=== PATIENT | female | born 1955 | race Caucasian/White ===

== ENCOUNTER 2021-12-20 09:05 | Outpatient (RCR) | payer MEDICARE, BC, SELFPAY ==
--- OUTSIDE RECORDS SUMMARY | 2021-12-02 09:46 | XMS_ITS | Continuity of Care Document ---
:1955 Author Allergies, Adverse Reactions, Alerts Allergen Type Severity Reaction Last Verified Status Updated Cephalexin Allergy Mild rash September 28, Yes Active 2020 Social History Smoking Status Unknown if ever smoked Additional Data Assigned Sex Female Medications Medication Status Dose Units Route Directions Qty Days Start End Ins tructions Date Date Levothyroxine Active 137 MCG PO Daily 30 Sodium Insurance Providers Guarantor Aj HickmanadwellDouglas Address [address] [place] [id number] Contact Info. Home Phone: Payer Policy Id Coverage Id Subscriber's Subscriber Id Effective E xpiration Name Date Date Medicare [id number] [employer] [id number] Aj [id number] Cherelle B Douglas
--- NOTE | 2021-12-15 16:44 | ONC.NURNOTE ---
Authorization: User: Zhanna Hidalgo Walter Date: 10/13/21 14:38 Type: Eligibility Determination Note... Request received from [facility] for continued authorization of Remicade [id number]. Patient carries Medicare as primary insurance. Per CMS.gov LCD [id number] no prior authorization is required for Remicade. Services are based on medical necessity and follows Medicare guidelines.
[2021-12-20 09:53] VITALS: BP 99/68; PULSE 66; RESP 18; TEMP 37.1; O2SAT 99
[2021-12-20 09:56] LABS: Hematocrit 38.7 % (33.0-51.0); Hemoglobin* 12.7 gm/dL (12.0-16.0); Mean Corpuscular HGB Conc 33 gm/dL (32-36); Mean Corpuscular Hemoglobin 32 pg (26-34); Mean Corpuscular Volume 99 fL (80-100); Red Blood Count 3.93 m/uL (4.00-5.20); White Blood Count* 4.45 K/uL (4.50-11.00)
[2021-12-20 09:57] LABS: Basophils Percent Auto 0.7 % (0.0-3.0); Eosinophils Percent Auto 3.6 % (0.0-7.0); Monocytes Percent Auto 12.1 % (0.0-11.0); Neutrophils Percent Auto 54.6 % (42.0-72.0); Platelet Count* 172 K/uL (140-440); RDW Coefficient of Variation % 11.6 % (11.5-15.5)
[2021-12-20 09:59] LABS: Slide Review Reflex No
[2021-12-20] MEDS: 0.9 % SODIUM CHLORIDE 250 ml 250 ML 35 ML IV (10:00)
[2021-12-20 10:15] LABS: Albumin* 4.1 g/dL (3.3-5.0)
[2021-12-20 10:17] LABS: Total Protein* 7.1 g/dL (6.0-8.3)
[2021-12-20 10:18] LABS: Alanine Aminotransferase* 21 U/L (4-35); Alkaline Phosphatase* 88 U/L (40-150); Aspartate Amino Transferase* 32 U/L (12-35); Bilirubin Direct* 0.3 mg/dL (0.0-0.5); Bilirubin Total* 0.4 mg/dL (0.1-1.5)
[2021-12-20 10:20] VITALS: BP 115/73; PULSE 64; RESP 18; TEMP 36.8; O2SAT 100
[2021-12-20 10:50] VITALS: BP 114/68; PULSE 71; RESP 18; TEMP 36.8; O2SAT 97
[2021-12-20 11:20] VITALS: BP 108/69; PULSE 65; RESP 18; TEMP 36.9; O2SAT 98
== END 2022-01-08 23:59 | disposition home or self-care (01) ==
LOC: CCIC 09:05
PROVIDERS: PCP Family Medicine; Visit Provider Clinical Nurse Specialist
DX: K50.10 Crohn's disease of large intestine without complications (principal)
CPT/HCPCS: 36415; 80076; 85025; 96413; 96415; J7050

== ENCOUNTER 2022-07-26 08:30 | Outpatient (RCR) | payer MEDICARE, BC, SELFPAY ==
[2022-02-15 09:29] VITALS: BP 100/62; PULSE 73; RESP 16; TEMP 36.4; O2SAT 98
[2022-02-15] MEDS: 0.9 % SODIUM CHLORIDE 250 ml 250 ML 35 ML IV (09:40)
[2022-02-15] MEDS: SODIUM CHLORIDE 0.9 % (FLUSH) 10 ML SYRINGE IVF (09:52)
[2022-04-12 09:20] VITALS: BP 105/68; PULSE 69; RESP 16; TEMP 36.3; O2SAT 98
[2022-04-12 10:50] VITALS: BP 103/67; PULSE 99; RESP 16; TEMP 36.8; O2SAT 99
[2022-04-12 11:05] VITALS: BP 108/73; PULSE 72; RESP 14; TEMP 36.4; O2SAT 98
[2022-04-12 11:40] VITALS: BP 94/60; PULSE 72; RESP 14; TEMP 36.2
[2022-04-12] MEDS: SODIUM CHLORIDE 0.9 % (FLUSH) 10 ML SYRINGE IVF (12:15)
[2022-06-07 13:24] VITALS: BP 102/63; PULSE 76; RESP 16; TEMP 36.4; O2SAT 99
[2022-06-07] MEDS: 0.9 % SODIUM CHLORIDE 250 ml 250 ML 35 ML IV (13:26)
--- NOTE | 2022-07-20 13:04 | URNOTE ---
Request received for authorization for?Infliximab (J1745). Prior authorization is not required as services are based on medical necessity and follow Medicare guidelines.
[2022-07-26 08:43] VITALS: BP 124/71; PULSE 75; RESP 16; TEMP 36.3; O2SAT 97
[2022-07-26 09:02] LABS: Basophils Percent Auto 0.8 % (0.0-3.0); Eosinophils Percent Auto 2.4 % (0.0-7.0); Hematocrit 39.9 % (33.0-51.0); Hemoglobin* 13.8 gm/dL (12.0-16.0); Mean Corpuscular HGB Conc 35 gm/dL (32-36); Mean Corpuscular Hemoglobin 32 pg (26-34); Mean Corpuscular Volume 93 fL (80-100); Monocytes Percent Auto 11.5 % (0.0-11.0); Neutrophils Percent Auto 56.3 % (42.0-72.0); Platelet Count* 197 K/uL (140-440); RDW Coefficient of Variation % 11.5 % (11.5-15.5); Red Blood Count 4.28 m/uL (4.00-5.20); White Blood Count* 3.73 K/uL (4.50-11.00)
[2022-07-26 09:08] LABS: Slide Review Reflex No
[2022-07-26] MEDS: SODIUM CHLORIDE 0.9 % (FLUSH) 10 ML SYRINGE IVF (09:08)
[2022-07-26] MEDS: 0.9 % SODIUM CHLORIDE 250 ml 250 ML 35 ML IV (09:08)
[2022-07-26 09:32] LABS: Albumin* 4.3 g/dL (3.3-5.0)
[2022-07-26 09:35] LABS: Alanine Aminotransferase* 28 U/L (4-35); Alkaline Phosphatase* 62 U/L (40-150); Aspartate Amino Transferase* 37 U/L (12-35); Bilirubin Direct* 0.2 mg/dL (0.0-0.5); Bilirubin Total* 0.6 mg/dL (0.1-1.5); Total Protein* 7.6 g/dL (6.0-8.3)
--- NOTE | 2022-07-26 11:19 | ONC.NURNOTE ---
Labs and remicade documentation faxed to patients GI care clinicians. Next appointment set up. All questions answered.
== END 2022-08-14 23:59 | disposition home or self-care (01) ==
LOC: CCIC 08:30
PROVIDERS: PCP Family Medicine; Referring Provider Family Medicine; Visit Provider Clinical Nurse Specialist
DX: K50.10 Crohn's disease of large intestine without complications (principal)
CPT/HCPCS: 36415; 36592; 80076; 85025; 96413; 96415; J7050

== ENCOUNTER 2023-02-28 09:00 | Outpatient (RCR) | payer MEDICARE, BC, SELFPAY ==
[2022-09-20 09:16] VITALS: BP 111/71; PULSE 72; RESP 16; TEMP 36.1; O2SAT 100
[2022-09-20] MEDS: 0.9 % SODIUM CHLORIDE 250 ml 250 ML 35 ML IV (11:39)
[2022-11-15 09:45] VITALS: BP 115/68; PULSE 75; RESP 16; TEMP 36.6; O2SAT 98
[2022-11-15] MEDS: 0.9 % SODIUM CHLORIDE 250 ml 250 ML 35 ML IV (10:00)
--- NOTE | 2022-11-15 11:00 | PC.NURSE ---
Pt present at [facility] today for Remicade infusion. After beginning the infusion, RN noted lab orders for today (CBC/diff & LFT). Shared with patient and Josué shared that she also needed a Remicade level prior to starting infusion. Because infusion was already started, we were unable to do this lab. RN spoke with ordering provider office, [place], and was given ok to do labs with next infusion. They also faxed Remicade level orders for PRIOR to next infusion. Pt aware and agrees with the plan.
[2023-01-10 09:25] VITALS: BP 109/77; PULSE 71; RESP 16; TEMP 36.2; O2SAT 100
[2023-01-10 09:32] LABS: Basophils Percent Auto 1.1 % (0.0-3.0); Eosinophils Percent Auto 3.2 % (0.0-7.0); Hematocrit 40.3 % (33.0-51.0); Hemoglobin* 13.5 gm/dL (12.0-16.0); Lymphocytes Percent Auto 30.4 % (20-44); Mean Corpuscular HGB Conc 34 gm/dL (32-36); Mean Corpuscular Hemoglobin 32 pg (26-34); Mean Corpuscular Volume 97 fL (80-100); Monocytes Percent Auto 12.6 % (0.0-11.0); Neutrophils Percent Auto 52.7 % (42.0-72.0); Platelet Count* 193 K/uL (140-440); RDW Coefficient of Variation % 11.2 % (11.5-15.5); Red Blood Count 4.17 m/uL (4.00-5.20); White Blood Count* 3.72 K/uL (4.50-11.00)
[2023-01-10 09:44] LABS: Slide Review Reflex No
[2023-01-10 09:54] LABS: Albumin* 4.2 g/dL (3.3-5.0)
[2023-01-10 09:57] LABS: Alanine Aminotransferase* 28 U/L (4-35); Alkaline Phosphatase* 55 U/L (40-150); Aspartate Amino Transferase* 34 U/L (12-35); Bilirubin Total* 0.6 mg/dL (0.1-1.5); Total Protein* 7.8 g/dL (6.0-8.3)
[2023-01-11 21:26] LABS: Rheumatoid Factor <10 IU/mL (0-14)
--- NOTE | 2023-01-16 15:24 | ONC.NURNOTE ---
Faxed labs to [facility].
[2023-02-28 09:15] VITALS: BP 103/62; PULSE 77; RESP 16; TEMP 36.2; O2SAT 99
== END 2023-03-19 23:59 | disposition home or self-care (01) ==
LOC: CCIC 09:00
PROVIDERS: PCP Family Medicine; Referring Provider Family Medicine; Visit Provider Clinical Nurse Specialist
DX: K50.10 Crohn's disease of large intestine without complications (principal)
CPT/HCPCS: 36415; 80076; 80230; 85025; 86431; 96366; 96413; 96415; J7050

== ENCOUNTER 2023-10-04 09:00 | Outpatient (RCR) | payer MEDICARE, BC, SELFPAY ==
[2023-04-19 09:12] VITALS: BP 106/69; PULSE 72; RESP 17; TEMP 36.4; O2SAT 97
[2023-04-19] MEDS: SODIUM CHLORIDE 0.9 % (FLUSH) 10 ML SYRINGE IVF (15:08)
[2023-06-15 09:12] VITALS: BP 109/69; PULSE 67; RESP 16; TEMP 36.4; O2SAT 98
--- NOTE | 2023-06-29 11:48 | URNOTE ---
Request received for authorization for?Infliximab (J1745). Prior authorization is not required as services are based on medical necessity and follow Medicare guidelines.
[2023-08-09 09:09] VITALS: BP 108/67; PULSE 72; RESP 16; TEMP 35.8; O2SAT 98
[2023-08-09] MEDS: 0.9 % SODIUM CHLORIDE 250 ml 250 ML 35 ML IV (09:30)
[2023-08-09] MEDS: inFLIXimab (Remicade) 300 MG, TUBING PRIMARY 1 EACH, In-line 0.2 micron filter set 1 EA... 40 MG IV (09:51)
[2023-10-04 09:00] VITALS: BP 105/58; PULSE 76; RESP 16; TEMP 35.8; O2SAT 98
[2023-10-04] MEDS: inFLIXimab (Remicade) 300 MG, TUBING PRIMARY 1 EACH, In-line 0.2 micron filter set 1 EA... 40 MG IV (09:50)
[2023-10-04] MEDS: 0.9 % SODIUM CHLORIDE 250 ml 250 ML 35 ML IV (09:50)
[2023-10-04 09:59] LABS: Eosinophils Percent Auto 3.3 % (0.0-7.0); Hematocrit 38.7 % (33.0-51.0); Mean Corpuscular HGB Conc 34 gm/dL (32-36); Mean Corpuscular Hemoglobin 32 pg (26-34); Mean Corpuscular Volume 94 fL (80-100); Monocytes Percent Auto 13.8 % (0.0-11.0); Neutrophils Percent Auto 50.9 % (42.0-72.0); Platelet Count* 192 K/uL (140-440); RDW Coefficient of Variation % 11.4 % (11.5-15.5); Red Blood Count 4.12 m/uL (4.00-5.20)
[2023-10-04] MEDS: SODIUM CHLORIDE 0.9 % (FLUSH) 10 ML SYRINGE IVF (10:01)
[2023-10-04 10:13] LABS: Albumin* 4.2 g/dL (3.3-5.0)
[2023-10-04 10:16] LABS: Alanine Aminotransferase* 17 U/L (4-35); Alkaline Phosphatase* 65 U/L (40-150); Aspartate Amino Transferase* 33 U/L (12-35); Bilirubin Direct* 0.1 mg/dL (0.0-0.5); Bilirubin Total* 0.6 mg/dL (0.1-1.5); Total Protein* 7.8 g/dL (6.0-8.3)
--- NOTE | 2023-10-04 10:40 | ONC.NURNOTE ---
Patient here for her Remicade infusion. Appears that CBC and LFTs were not drawn in June when requested by ordering physician. Just the immunology was done in June. Fiscal Analyst ordered CBC and LFTs for today. These results along with the immunology lab results were faxed to Jessica LUIS at [facility]. Requested PA to send new orders if she wants to space labs out to get back on track. Patient also interested in the accelerated infusion. Faxed our order set to provider to fill out and fax back. Patient has an appointment at [facility] on 10/24/23 and will address this with provider. Her next infusion is scheduled for 11/28/23.
[2023-10-05 06:23] LABS: Slide Review Reflex No
== END 2023-10-16 23:59 | disposition home or self-care (01) ==
LOC: CCIC 09:00
PROVIDERS: PCP Family Medicine; Referring Provider Family Medicine; Visit Provider Clinical Nurse Specialist
DX: K50.10 Crohn's disease of large intestine without complications (principal); Z51.81 Encounter for therapeutic drug level monitoring
CPT/HCPCS: 36415; 80076; 80230; 85025; 96413; 96415; J7050

== ENCOUNTER 2024-05-15 09:00 | Outpatient (RCR) | payer MEDICARE, BC, SELFPAY ==
[2023-11-30] MEDS: 0.9 % SODIUM CHLORIDE 250 ml 250 ML 35 ML IV (11:18)
[2023-11-30] MEDS: inFLIXimab (Remicade) 300 MG, TUBING PRIMARY 1 EACH, In-line 0.2 micron filter set 1 EA... 100 MG IV (11:28)
[2024-01-23 09:15] VITALS: BP 110/68; PULSE 66; RESP 16; TEMP 36.5; O2SAT 99
[2024-01-23] MEDS: 0.9 % SODIUM CHLORIDE 250 ml 250 ML 30 ML IV (09:36)
[2024-01-23] MEDS: inFLIXimab (Remicade) 300 MG, TUBING PRIMARY 1 EACH, In-line 0.2 micron filter set 1 EA... 100 MG IV (09:45)
[2024-01-23] MEDS: SODIUM CHLORIDE 0.9 % (FLUSH) 10 ML SYRINGE IVF (09:47)
[2024-03-21 11:02] VITALS: BP 113/64; PULSE 72; RESP 17; TEMP 36.3; O2SAT 94
[2024-03-21 11:24] LABS: Basophils Percent Auto 1.5 % (0.0-3.0); Eosinophils Percent Auto 4.2 % (0.0-7.0); Hemoglobin* 12.9 gm/dL (12.0-16.0); Immature Granulocytes Pct Auto 0.3 %; Lymphocytes Percent Auto 31.4 % (20-44); Mean Corpuscular HGB Conc 32 gm/dL (32-36); Mean Corpuscular Hemoglobin 31 pg (26-34); Mean Corpuscular Volume 97 fL (80-100); Monocytes Percent Auto 15.1 % (0.0-11.0); Neutrophils Percent Auto 47.5 % (42.0-72.0); Platelet Count* 193 K/uL (140-440); RDW Coefficient of Variation % 11.8 % (11.5-15.5); Red Blood Count 4.11 m/uL (4.00-5.20); White Blood Count* 3.31 K/uL (4.50-11.00)
[2024-03-21 11:35] LABS: Slide Review Reflex No
[2024-03-21 11:39] LABS: Albumin* 4.3 g/dL (3.3-5.0)
[2024-03-21 11:41] LABS: Bilirubin Total* 0.6 mg/dL (0.1-1.5)
[2024-03-21 11:42] LABS: Alanine Aminotransferase* 50 U/L (4-35); Alkaline Phosphatase* 61 U/L (40-150); Aspartate Amino Transferase* 51 U/L (12-35); Total Protein* 7.6 g/dL (6.0-8.3)
[2024-03-21] MEDS: inFLIXimab (Remicade) 300 MG, TUBING PRIMARY 1 EACH, In-line 0.2 micron filter set 1 EA... 100 MG IV (11:59)
[2024-03-21] MEDS: SODIUM CHLORIDE 0.9 % (FLUSH) 10 ML SYRINGE IVF (12:00)
--- NOTE | 2024-03-21 14:38 | ONC.NURNOTE ---
Pt had 6 mo labs drawn. Elevated AST/ALT. Faxed and called to Jessica [facility], ordering provider. p:[phone] f: [phone]
[2024-05-15 09:09] VITALS: BP 116/68; PULSE 76; RESP 16; TEMP 35.7; O2SAT 99
[2024-05-15] MEDS: inFLIXimab (Remicade) 300 MG, TUBING PRIMARY 1 EACH, In-line 0.2 micron filter set 1 EA... 100 MG IV (09:35)
[2024-05-15] MEDS: SODIUM CHLORIDE 0.9 % (FLUSH) 10 ML SYRINGE IVF (09:38)
== END 2024-05-28 23:59 | disposition home or self-care (01) ==
LOC: CCIC 09:00
PROVIDERS: PCP Family Medicine; Referring Provider Family Medicine; Visit Provider Clinical Nurse Specialist
DX: K50.10 Crohn's disease of large intestine without complications (principal)
CPT/HCPCS: 36415; 80076; 85025; 96365; 96413; 96415; J1745; J7050

== ENCOUNTER 2024-09-02 09:36 | Outpatient (REF) | payer MEDICARE, BC, SELFPAY ==
[2024-09-02 09:50] LABS: Basophils Percent Auto 0.9 % (0.0-3.0); Eosinophils Percent Auto 5.1 % (0.0-7.0); Hematocrit 38.4 % (33.0-51.0); Hemoglobin* 12.7 gm/dL (12.0-16.0); Immature Granulocytes Pct Auto 0.3 %; Lymphocytes Percent Auto 26.8 % (20-44); Mean Corpuscular HGB Conc 33 gm/dL (32-36); Mean Corpuscular Hemoglobin 32 pg (26-34); Mean Corpuscular Volume 96 fL (80-100); Monocytes Percent Auto 15.4 % (0.0-11.0); Neutrophils Percent Auto 51.5 % (42.0-72.0); Platelet Count* 199 K/uL (140-440); RDW Coefficient of Variation % 11.3 % (11.5-15.5); Red Blood Count 4.02 m/uL (4.00-5.20); White Blood Count* 3.51 K/uL (4.50-11.00)
[2024-09-02 09:52] LABS: Slide Review Reflex No
[2024-09-02 10:00] LABS: Albumin* 4.1 g/dL (3.3-5.0)
[2024-09-02 10:02] LABS: Alanine Aminotransferase* 28 U/L (4-35); Aspartate Amino Transferase* 38 U/L (12-35)
[2024-09-02 10:03] LABS: Alkaline Phosphatase* 55 U/L (40-150); Bilirubin Direct* 0.2 mg/dL (0.0-0.5); Bilirubin Total* 0.5 mg/dL (0.1-1.5); Total Protein* 7.3 g/dL (6.0-8.3)
== END 2024-09-02 09:37 | disposition home or self-care (01) ==
LOC: NPINS 09:36
PROVIDERS: PCP Family Medicine; Visit Provider Physician Assistant Medical
DX: K50.00 Crohn's disease of small intestine without complications (principal)
CPT/HCPCS: 80076; 85025

== ENCOUNTER 2024-12-23 09:00 | Outpatient (RCR) | payer MEDICARE, BC, SELFPAY ==
[2024-07-10 09:07] VITALS: BP 116/73; PULSE 71; RESP 16; TEMP 35.9; O2SAT 98
[2024-07-10] MEDS: inFLIXimab (Remicade) 300 MG, TUBING PRIMARY 1 EACH, In-line 0.2 micron filter set 1 EA... 100 MG IV (10:10)
[2024-09-02 09:07] VITALS: BP 106/69; PULSE 76; RESP 16; TEMP 36.4; O2SAT 96
[2024-09-02] MEDS: inFLIXimab (Remicade) 300 MG, TUBING PRIMARY 1 EACH, In-line 0.2 micron filter set 1 EA... 100 MG IV (09:54)
[2024-09-02] MEDS: SODIUM CHLORIDE 0.9 % (FLUSH) 10 ML SYRINGE IVF (10:00)
[2024-09-02 10:17] VITALS: BP 116/71; PULSE 72; RESP 16; TEMP 36.5; O2SAT 98
[2024-10-28 09:04] VITALS: BP 105/69; PULSE 72; RESP 16; TEMP 36.2; O2SAT 98
[2024-10-28] MEDS: SODIUM CHLORIDE 0.9 % (FLUSH) 10 ML SYRINGE IVF ×2 (09:35→10:57)
[2024-10-28] MEDS: inFLIXimab (Remicade) 300 MG, TUBING PRIMARY 1 EACH, In-line 0.2 micron filter set 1 EA... 100 MG IV (09:40)
--- NOTE | 2024-10-28 11:34 | ONC.NURNOTE ---
Patient in clinic today for next dose of Infliximab. Her current infusion orders on 11/06/24. RN faxed INfliximab order sheet to [facility] to have them complete and send back prior to patient's next infusion. Infusion is scheduled on 12/23/24. Patient recently seen by MD at [facility] on 10/23/24. Note in patient's chart.
[2024-12-23 09:11] VITALS: BP 118/69; PULSE 78; RESP 15; TEMP 36.4; O2SAT 97
[2024-12-23] MEDS: SODIUM CHLORIDE 0.9 % (FLUSH) 10 ML SYRINGE IVF ×2 (10:09→11:29)
[2024-12-23] MEDS: inFLIXimab (Remicade) 300 MG, TUBING PRIMARY 1 EACH, In-line 0.2 micron filter set 1 EA... 100 MG IV (10:09)
== END 2025-01-06 23:59 | disposition home or self-care (01) ==
LOC: CCIC 09:00
PROVIDERS: PCP Family Medicine; Referring Provider Family Medicine; Visit Provider Clinical Nurse Specialist
DX: K50.00 Crohn's disease of small intestine without complications (principal)
CPT/HCPCS: 80076; 85025; 96413; J1745; J7050